=== PATIENT | female | born 1955 | race Caucasian/White ===

== ENCOUNTER 2019-11-17 08:33 | Emergency (ER) | payer OTHER ==
[~2019-11-17] VITALS: Ht 160 cm; Wt 63.8 kg
[2019-11-17] MEDS ORDERED: TENORMIN25 MG PO (08:55)
[2019-11-17 09:38] LABS: ABSOLUTE BASOPHILS 0.1 thou/uL (0.0-0.2); ABSOLUTE EOSINOPHILS 0.7 thou/uL (0.0-0.7); ABSOLUTE LYMPHOCYTES 1.5 thou/uL (0.8-5.3); ABSOLUTE MONOCYTES 0.3 thou/uL (0.0-1.2); ABSOLUTE NEUTROPHILS 4.4 thou/uL (1.6-8.1); BASOPHILS 1.8 %; HEMATOCRIT 36.5 % (37.0-47.0); HEMOGLOBIN 11.6 gm/dL (12.0-15.0); MCH 26.3 pg (26.0-34.0); MCHC 31.8 g/dL (28.0-37.0); MCV 82.8 fL (80.0-100.0); MONOCYTES 4.9 %; MPV 7.1 fl. (7.2-11.1); NUCLEATED RBCS 0 /100WBC; PLATELET COUNT* 431 thou/uL (150-400); POLYS 62.3 %; RDW-CV 25.3 % (10.5-14.5); WBC 7.1 thou/uL (4.0-11.0)
[2019-11-17 09:54] LABS: CALCIUM 8.7 mg/dL (8.5-10.1); CREATININE 1.2 mg/dL (0.6-1.3); POTASSIUM 3.6 mmol/L (3.5-5.1)
[2019-11-17 09:59] LABS: ALBUMIN 3.6 g/dL (3.4-5.0); TOTAL BILIRUBIN 0.3 mg/dL (<0.1-1.0); TOTAL PROTEIN 7.1 g/dL (6.4-8.2)
[2019-11-17 10:16] LABS: ANISOCYTOSIS 2+; PLATELET ESTIMATE ADEQUATE; TARGET CELLS 2+
[2019-11-17 10:51] LABS: URINE BILIRUBIN NEGATIVE (Negative); URINE BLOOD NEGATIVE (Negative); URINE CLARITY CLEAR; URINE COLOR YELLOW; URINE GLUCOSE-RANDOM NEGATIVE (Negative); URINE KETONES NEGATIVE (Negative); URINE LEUKOCYTES-REFLEX NEGATIVE (Negative); URINE NITRITE-REFLEX NEGATIVE (Negative); URINE PROTEIN NEGATIVE (Negative); URINE SPECIFIC GRAVITY 1.015 (1.005-1.030); URINE UROBILINOGEN 0.2 E.U./dl (0.2-1.0)
[2019-11-17 11:00] LABS: AMP/METHAMP Negative (Negative); BARBITURATES Negative (Negative); BENZODIAZEPINES Negative (Negative); COCAINE Negative (Negative); METHADONE Negative (Negative); OPIATES Negative (Negative); PCP Negative (Negative); THC Negative (Negative)
--- NOTE | 2019-11-17 11:02 | EKG ---
[place] [address] ELECTROCARDIOGRAM REPORT Name: RADHA BOLTON JASPAL Room: [facility]#: [id number] Admission: 11/17/19 Attend Phys: Discharge: Date of : 59 Date of Service: 11/17/19837 Report #: [id number] THIS REPORT FOR: //name// [facility] ED Test Date: 2019-11-17 Test Time: 08:38:51 Pat Name: RADHA BOLTON Department: Room: Gender: [employer] Supervisor: [facility] : 1955 Requested By: Gladys Collazo Order Number: [id number] MD: Vernon Gallagher Measurements Intervals [place] Rate: 83 P: -6 TX: 166 QRS: -35 QRSD: 110 T: 85 QT: 418 QTc: 492 Interpretive Statements Sinus rhythm Probable left atrial enlargement Left ventricular hypertrophy Abnormal T, consider ischemia, lateral leads ST elevation, consider anterior injury No previous ECG available for comparison Electronically Signed On 11-17-2019 11:00:41 CDT by Vernon Gallagher [email or web address] <ELECTRONICALLY SIGNED> By: Vernon Gallagher MD, FACC 11/17/19 1100 Vernon Gallagher MD, FAC /EPI
[2019-11-17] MEDS ORDERED: HYDROCODON-ACE1 EAC7 PO (15:43)
[2019-11-17] MEDS ORDERED: CARAFATE 1 GM TA1 GM PO (15:43)
[2019-11-17 17:16] VITALS: BP 135/72
== END 2019-11-17 17:18 | disposition home or self-care (01) ==
LOC: M.ERS 08:33
PROVIDERS: Personal Emergency Response Attendant
DX: F41.9 Anxiety disorder, unspecified (principal); R10.84 Generalized abdominal pain; R11.2 Nausea with vomiting, unspecified; I10 Essential (primary) hypertension; F17.210 Nicotine dependence, cigarettes, uncomplicated; Z91.041 Radiographic dye allergy status; Z88.6 Allergy status to analgesic agent; Z88.8 Allergy status to other drugs, medicaments and biological substances